=== PATIENT | female | born 1965 | race Caucasian/White ===

== ENCOUNTER 2017-03-06 11:38 | Emergency (ER) | payer OTHER, SELFPAY ==
[2017-03-06 11:39] VITALS: BMI 27.0
[2017-03-06 11:52] VITALS: BP 113/74; PULSE 90; RESP 16; TEMP 98.1; O2SAT 98
[2017-03-06 12:34] LABS: RBC URINE 1 /hpf (0-3); URINE BILIRUBIN NEGATIVE (NEGATIVE); URINE BLOOD NEGATIVE (NEGATIVE); URINE COLOR Yellow (YELLOW); URINE GLUCOSE (UA) NORMAL (Normal); URINE KETONE NEGATIVE (NEGATIVE); URINE LEUKOCYTE ESTERASE NEG Leu/uL (Negative); URINE PROTEIN NEGATIVE (NEGATIVE); URINE UROBILINOGEN NORMAL mg/dL (0.2-1.0); WBC URINE 1 /hpf (0-5)
--- NOTE | 2017-03-06 12:48 | C.PDOC ---
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 Pt sts, pain is constant, aching, non-radiating and relieved by Tylenol. Pt otherwise, denies fever, chills, denies known trauma or injury, headache, dizziness, CP, SOB, dyspnea, abd. pain , V/D, denies weakness, sensory or vascular deficits to B/L UEs and LEs. Pt is asking for back brace " to stabilize by back". Ambulate to Ed for evaluation, not in any apparent distress. Time Seen by Provider: 03/06/17 11:54 Chief Complaint (Nursing): Back Pain History Per: Patient History/Exam Limitations: no limitations Onset/Duration Of Symptoms: Days (3-4) Past Medical History Reviewed: Historical Data, Nursing Documentation, Vital Signs Vital Signs: Last Vital Signs Temp 98.1 F 03/06/17 11:49 Pulse 90 03/06/17 11:49 Resp 16 03/06/17 11:49 BP 113/74 03/06/17 11:49 Pulse Ox 98 03/06/17 13:33 - Medical History PMH: Malignancy (recent diagnosis of breast CA, treatment starting soon) Family History: States: No Known Family Hx - Social History Hx Alcohol Use: No Hx Substance Use: No Review Of Systems Except As Marked, All Systems Reviewed And Found Negative. Constitutional: Negative for: Fever, Chills Cardiovascular: Negative for: Chest Pain Respiratory: Negative for: Shortness of Breath Gastrointestinal: Negative for: Vomiting, Abdominal Pain, Diarrhea Musculoskeletal: Positive for: Back Pain (Diffuse upper and lower ) Neurological: Negative for: Headache, Dizziness Physical Exam - Physical Exam Appears: Well, Non-toxic, No Acute Distress Skin: Normal Color, Warm, Dry, No Rash, No Ecchymosis Eye(s): bilateral: PERRL Neck: No Midline Cervical Tenderness, No Step Off Deformity, Supple, Other ( mild diffuse cervical paraspinal tenderness. No midline tenderness, no palpable step-offs.) Chest: Symmetrical, No Deformity Respiratory: No Decreased Breath Sounds, No Accessory Muscle Use, No Stridor, No Wheezing Gastrointestinal/Abdominal: Soft, No Tenderness, No Distention, No Guarding Back: No CVA Tenderness, No Vertebral Tenderness, Paraspinal Tenderness ( diffuse lumbar paraspinal tenderness, no midline tenderness.) Extremity: No Tenderness, No Pedal Edema, No Deformity, No Swelling Neurological/Psych: Oriented x3, Normal Speech, Normal Motor, Normal Sensation, Normal Reflexes ED Course And Treatment O2 Sat by Pulse Oximetry: 98 (RA ) Pulse Ox Interpretation: Normal - Other Rad X-Ray - Lumbar Spine X-Ray: Viewed By Me, Read By Radiologist Interpretation: PROCEDURE: Radiographs of the Lumbar Spine. HISTORY: pain. COMPARISON: No prior. FINDINGS: BONES: No acute compression fractures nor retropulsed fragments. Vertebral bodies exhibit relatively normal stature. The appears to be very subtle levoscoliosis however vertebral bodies otherwise exhibit normal alignment. Facets normally aligned. DISC SPACES: Disc space heights maintained. Small marginal anterolateral osteophyte formation seen at several levels. OTHER FINDINGS: None. IMPRESSION: No acute fractures. Minimal multilevel degenerative spondylosis with very subtle levoscoliosis. X-Ray - Cervical Spine X-Ray: Viewed By Me, Read By Radiologist Interpretation: PROCEDURE: Cervical spine dated 03/06/2017. HISTORY: Pain. COMPARISON: None. FINDINGS: BONES: Note the examination is limited due to large screw aeration of the odontoid in the open mouth as well as extended fuller position. No definitive evidence of acute compression fractures nor retropulsed fragments. Vertebral bodies exhibit relatively normal stature. There is straightening of the normal cervical lordosis with minimal posterior subluxation of C6 over C7 vertebral bodies otherwise exhibit normal alignment. DISC SPACES: Disc space heights relatively maintained however tiny marginal anterior osteophyte formation seen at several levels. SOFT TISSUES: Normal. No prevertebral soft tissue swelling. OTHER FINDINGS: Note made of in situ right-sided adequate. IMPRESSION: No acute fractures so far as can be seen on this limited study as above. Straightening of the normal cervical lordosis ; rule out muscle spasm. There is also minimal posterior subluxation C6 over C7. Progress Note: On re-evaluation, pt is afebrile, hemodynamicaly stable. non- toxic. Ambulatory in ED with stable gait. Neck: (-) midline tenderness. Lungs : CTA B/L, BS equal B/L. Abd: benign. Back: (-) CVA tenderness. Neuorlogicaly intact. Imaging review and appears without acute abnoramlities. UA- normal study. Pt has clinical findings c/w diffuse back strain, hx of metastatic breast ca. Pt advised and ref. to f/[facility] in 2-3 days for re- evaluation. Return to ED if any worsening or new changes. Medical Decision Making Medical Decision Making: PLAN: * X-Ray - LS Spine, Cervical Spine * HCG * Urinalysis Disposition Counseled Patient/Family Regarding: Diagnosis, Need For Followup, Rx Given - Disposition Referrals: Ace Hendricks MD [Medical Doctor] - Disposition: HOME/ ROUTINE Disposition Time: 12:51 Condition: STABLE Additional Instructions: Take pain medication as need for pain Follow up with PMD in 2-3 days for re-evaluation. Return to ED if any worsening or new changes. Prescriptions: Methocarbamol [Robaxin] 500 mg PO TID #14 tab traMADol [Ultram] 50 mg PO TID #7 tab Instructions: Cervical Sprain (ED), Back Pain (ED) Forms: [employer] ([place]) - Clinical Impression Clinical Impression: Lumbar sprain, Cervical strain - PA / PLASTICS SEASONER OPERATOR / Resident Statement MD/DO has reviewed & agrees with the documentation as recorded. - Scribe Statement The provider has reviewed the documentation as recorded by the Scribe Mercedes Cabral All medical record entries made by the Scribe were at my direction and personally dictated by me. I have reviewed the chart and agree that the record accurately reflects my personal performance of the history, physical exam, medical decision making, and the department course for this patient. I have also personally directed, reviewed, and agree with the discharge instructions and disposition.
--- NOTE | 2017-03-06 13:19 | RAD ---
PROCEDURE: Radiographs of the Lumbar Spine. HISTORY: pain COMPARISON: No prior. FINDINGS: BONES: No acute compression fractures nor retropulsed fragments. Vertebral bodies exhibit relatively normal stature. The appears to be very subtle levoscoliosis however vertebral bodies otherwise exhibit normal alignment. Facets normally aligned. DISC SPACES: Disc space heights maintained. Small marginal anterolateral osteophyte formation seen at several levels. OTHER FINDINGS: None. IMPRESSION: No acute fractures. Minimal multilevel degenerative spondylosis with very subtle levoscoliosis
--- NOTE | 2017-03-06 13:22 | RAD ---
PROCEDURE: Cervical spine dated 03/06/2017 HISTORY: Pain. COMPARISON: None. FINDINGS: BONES: Note the examination is limited due to large screw aeration of the odontoid in the open mouth as well as extended fuller position. No definitive evidence of acute compression fractures nor retropulsed fragments. Vertebral bodies exhibit relatively normal stature. There is straightening of the normal cervical lordosis with minimal posterior subluxation of C6 over C7 vertebral bodies otherwise exhibit normal alignment DISC SPACES: Disc space heights relatively maintained however tiny marginal anterior osteophyte formation seen at several levels. SOFT TISSUES: Normal. No prevertebral soft tissue swelling. OTHER FINDINGS: Note made of in situ right-sided adequate IMPRESSION: No acute fractures so far as can be seen on this limited study as above. Straightening of the normal cervical lordosis ; rule out muscle spasm. There is also minimal posterior subluxation C6 over C7.
== END 2017-03-06 13:54 | disposition home or self-care (01) ==
LOC: C.ER 11:38
DX: S33.5XXA Sprain of ligaments of lumbar spine, initial encounter (principal); S16.1XXA Strain of muscle, fascia and tendon at neck level, initial encounter; X50.9XXA Other and unspecified overexertion or strenuous movements or postures, initial encounter

== ENCOUNTER 2017-03-26 15:50 | Emergency (ER) | payer OTHER, SELFPAY ==
[2017-03-26 15:50] VITALS: BMI 38.1
[2017-03-26 16:03] VITALS: TEMP 98.2
[2017-03-26 16:40] LABS: URINE BILIRUBIN NEGATIVE (NEGATIVE); URINE BLOOD 2+ (NEGATIVE); URINE COLOR Yellow (YELLOW); URINE GLUCOSE (UA) NORMAL (Normal); URINE KETONE NEGATIVE (NEGATIVE); URINE LEUKOCYTE ESTERASE NEG Leu/uL (Negative); URINE PROTEIN NEGATIVE (NEGATIVE); URINE UROBILINOGEN NORMAL mg/dL (0.2-1.0); WBC URINE < 1 /hpf (0-5)
[2017-03-26 16:46] LABS: RBC URINE 4 /hpf (0-3); URINE BACTERIA RARE (<OCC)
[2017-03-26 17:18] LABS: BASO % 0.5 % (0.0-2.0); EOS # 0.3 K/uL (0.0-0.7); EOS % 4.1 % (0.0-4.0); HEMATOCRIT 30.1 % (34.0-47.0); LYMPH # 2.4 K/uL (1.0-4.3); LYMPH % 29.7 % (20.0-40.0); MEAN CELL VOLUME 84.5 fL (81.0-99.0); MEAN CORPUSCULAR HEMOGLOBIN 27.5 pg (27.0-31.0); MEAN CORPUSCULAR HGB CONC 32.6 g/dL (33.0-37.0); MEAN PLATELET VOLUME 7.3 fL (7.2-11.7); MONO # 0.4 K/uL (0.0-0.8); MONO % 5.4 % (0.0-10.0); RED CELL DISTRIBUTION WIDTH 13.6 % (11.5-14.5); WHITE BLOOD COUNT 8.2 K/uL (4.8-10.8)
[2017-03-26 17:25] LABS: INR 1.1
[2017-03-26 17:29] LABS: ALKALINE PHOSPHATASE 77 U/L (38-126); ALT/SGPT 34 U/L (9-52); AST/SGOT 26 U/L (14-36); BILIRUBIN,TOTAL 0.5 mg/dL (0.2-1.3); BLOOD UREA NITROGEN 13 mg/dL (7-17); CALCIUM 9.2 mg/dl (8.6-10.4); CARBON DIOXIDE 26 mmol/L (22-30); CHLORIDE 102 mmol/L (98-107); GFR AFRICAN-AMERICAN > 60; GLUCOSE,RANDOM 88 mg/dL (65-105); POTASSIUM 3.9 mmol/L (3.6-5.2); SODIUM 139 mmol/L (132-148); TOTAL PROTEIN 6.8 g/dL (6.3-8.3)
[2017-03-26] MEDS ORDERED: Sodium Chloride 0.9% 1,000 ML IV ONE (18:36)
--- NOTE | 2017-03-26 20:20 | US ---
EXAM: US Pelvis Complete, Transabdominal US Pelvis, Transvaginal CLINICAL HISTORY: 51 years old, female; Signs and symptoms; Menstruation abnormalities; Postmenopausal bleeding; Additional info: Vaginal bleeding. H/o metastatic breast ca. TECHNIQUE: Real-time transabdominal and transvaginal pelvic ultrasound (complete) with image documentation. Transvaginal imaging was used for better evaluation of the endometrium and adnexa. COMPARISON: No relevant prior studies available. FINDINGS: Uterus/cervix: The uterus measures 10.2 x 4.8 x 7.1 cm. Endometrial stripe measures 1.4 cm. Right ovary: The right ovary measures 3.5 x 3.4 x 3.6 cm and contains a complex cyst measuring 3.6 cm in greatest diameter. Blood flow is demonstrated in the left ovary on pulsed Doppler examination. Left ovary: The left ovary measures 4.7 x 2.2 x 4 cm. Subcentimeter follicles are present. Blood flow is demonstrated within the left ovary on color Doppler examination. Free fluid: No free fluid. Bladder: Unremarkable as visualized. Wall is normal thickness for degree of distention. IMPRESSION: Endometrial stripe is thickened for postmenopausal female. An endovaginal examination performed immediately after the transabdominal study demonstrated a endometrial thickness of 7 mm. Please see report from the transvaginal study. 2. Hemorrhagic cyst in the right ovary EXAM: US Pelvis, Transvaginal EXAM DATE/TIME: Exam ordered 03/26/2017 4:44 PM CLINICAL HISTORY: 51 years old, female; Signs and symptoms; Menstruation abnormalities; Postmenopausal bleeding; Additional info: Vaginal bleeding. H/o metastatic breast ca. TECHNIQUE: Real-time transvaginal pelvic ultrasound (complete) with image documentation. Transvaginal imaging was used for better evaluation of the endometrium and adnexa. COMPARISON: No relevant prior studies available. FINDINGS: Uterus/cervix: The uterus measures 9.8 x 6.7 x 5 cm. A subendometrial cyst is noted in the fundus measuring 2 mm. There is an intramural fibroid noted on superiorly in the right uterine corpus and measures 2.7 x 2.3 x 2.5 cm. The endometrial stripe measures 7 mm. Right ovary: The right ovary measures 3.7 x 3.3 x 3.3 cm. A 2.6 cm hemorrhagic cyst is noted in the right ovary. Blood flow is demonstrated within the right ovary. . Left ovary: The left ovary measures 3.6 x 2.3 x 3.2 cm. Subcentimeter follicles are present. Blood flow is demonstrated on color Doppler examination. Free fluid: No free fluid. Bladder: Empty bladder which cannot be evaluated with this probe. Other findings: IMPRESSION: 1. Uterine fibroid. 2. Endometrial stripe measures 7 mm which is abnormal for postmenopausal female unless the patient is receiving hormonal therapy or tamoxifen. Clinical correlation suggested. 3. Subendometrial cyst suggests adenomyosis 4. Hemorrhagic cyst noted within the right ovary. This would be an abnormal finding in a postmenopausal female and suggests an ovarian neoplasm. Please correlate with patient's menstrual status. If the patient is perimenopausal, short-term followup suggested to document resolution.
--- NOTE | 2017-03-26 21:04 | C.PDOC ---
History Of Present Illness Pt c/o vaginal bleeding. She states that the severity of the bleeding is similar to a menstrual period. Time Seen by Provider: 03/26/17 16:11 Chief Complaint (Nursing): Female Genitourinary History Per: Patient Onset/Duration Of Symptoms: Days (1) Current Symptoms Are (Timing): Still Present Severity: Moderate Quality Of Discomfort: Cramping Alleviating Factors: None Additional History Per: Prior Records Abnormal Vaginal Bleeding: Yes Past Medical History Reviewed: Historical Data, Nursing Documentation, Vital Signs Vital Signs: Last Vital Signs Temp 98.2 F 03/26/17 16:01 Pulse 75 03/26/17 19:51 Resp 16 03/26/17 19:51 BP 103/58 L 03/26/17 19:51 Pulse Ox 100 03/26/17 19:51 - Medical History PMH: Malignancy (Breast, metastatic.) Surgical History: No Surg Hx Family History: States: Unknown Family Hx - Social History Hx Alcohol Use: No Hx Substance Use: No Review Of Systems Except As Marked, All Systems Reviewed And Found Negative. Constitutional: Negative for: Fever Cardiovascular: Negative for: Chest Pain, Light Headedness Respiratory: Negative for: Shortness of Breath Gastrointestinal: Negative for: Vomiting Genitourinary: Positive for: Vaginal Bleeding. Negative for: Dysuria Musculoskeletal: Negative for: Neck Pain Skin: Negative for: Rash Neurological: Negative for: Weakness, Numbness, Seizures Physical Exam - Physical Exam Appears: No Acute Distress, Chronically Ill Skin: Warm, Dry Head: Atraumatic, Normacephalic Eye(s): bilateral: PERRL, EOMI Neck: Normal ROM, Supple Cardiovascular: Rhythm Regular Respiratory: Normal Breath Sounds, No Accessory Muscle Use Gastrointestinal/Abdominal: Soft, Tenderness (mild suprapubic), No Guarding, No Rebound Back: No CVA Tenderness Extremity: Normal ROM Neurological/Psych: Oriented x3, Normal Motor, Normal Sensation ED Course And Treatment - Laboratory Results Result Diagrams: 03/26/17 17:12 03/26/17 17:12 Interpretation Of Abnormal: Mild anemia. Urine POC: Negative O2 Sat by Pulse Oximetry: 100 Pulse Ox Interpretation: Normal - CT Scan/US Pelvic US Other Rad Studies (CT/US): Read By Radiologist, Radiology Report Reviewed CT/US Interpretation: IMPRESSION: 1. Uterine fibroid. . 2. Endometrial stripe measures 7 mm which is abnormal for postmenopausal female. unless the patient is receiving hormonal therapy or tamoxifen. Clinical. correlation suggested. . 3. Subendometrial cyst suggests adenomyosis. . 4. Hemorrhagic cyst noted within the right ovary. This would be an abnormal. finding in a postmenopausal female and suggests an ovarian neoplasm. Please. correlate with patient's menstrual status. If the patient is perimenopausal,. short-term followup suggested to document resolution. - Physician Consult Information Physician Contacted: Malu Bledsoe ([employer]) Outcome Of Conversation: I discussed with her the pt's history, presentation, lab and US findings. She states that pt should continue all her medications, including the aromatase inhibitor and f/up with outpt Gas[employer]isher for further evaluation and treatment. Disposition Counseled Patient/Family Regarding: Studies Performed, Diagnosis, Need For Followup, Rx Given - Disposition Referrals: Alexander Leo MD [Staff Provider] - Bj Flores [Staff Provider] - [facility] [Outside] Disposition: HOME/ ROUTINE Disposition Time: 21:07 Condition: FAIR Additional Instructions: Follow up with your doctor and with a [employer] Instructor this week for further evaluation and treatment. Return to the ER if you develop dizziness, fever, worsening of symptoms or if you have any other concerns. Prescriptions: Ferrous Sulfate [Feosol] 325 mg PO TID #30 tab Instructions: Ovarian Cyst (ED), Uterine Fibroids (ED) Forms: [employer] (Dominican) - Clinical Impression Clinical Impression: Abnormal vaginal bleeding, Uterus, adenomyosis, Fibroid, uterine, Hemorrhagic cyst of right ovary
[2017-03-26 21:23] VITALS: BP 98/59; PULSE 83; RESP 18; O2SAT 99
== END 2017-03-26 21:36 | disposition home or self-care (01) ==
LOC: C.ER 15:50
DX: N93.9 Abnormal uterine and vaginal bleeding, unspecified (principal); N80.0 Endometriosis of uterus; D25.9 Leiomyoma of uterus, unspecified; N83.201 Unspecified ovarian cyst, right side
CPT/HCPCS: 76830; 76856; 80053; 81001; 84703; 85025; 85610; 85730; 96360; 99285; J7040

== ENCOUNTER 2017-05-15 17:22 | Emergency (ER) | payer SELFPAY ==
[2017-05-15 17:22] VITALS: BMI 27.6
--- NOTE | 2017-05-15 18:31 | C.PDOC ---
History Of Present Illness 51 y/o9 female with PMHX of breast cancer presents to ED with complaints of 101.0 fever, aching joints, shaking hands and headache for 3 days. At ED patient reports chest "pressure" making it hard to breathe and takes Tylenol with mild relief but still feels uncomfortable which prompted visit to ED. Patient states she had the flu last year and these symptoms feel similar. Patient denies recent travel, sick contacts, dizziness, abdominal pain, symptoms or any other complaints at this time. Flu vaccine x1 month ago Time Seen by Provider: 05/15/17 18:13 Chief Complaint (Nursing): Flu-like Symptoms History Per: Patient History/Exam Limitations: no limitations Onset/Duration Of Symptoms: Days Current Symptoms Are (Timing): Still Present Location Of Pain: Diffuse Myalgias, Headache Past Medical History Reviewed: Historical Data, Nursing Documentation, Vital Signs Vital Signs: Last Vital Signs Temp 99 F 05/15/17 20:37 Pulse 78 05/15/17 20:37 Resp 20 05/15/17 20:37 BP 110/66 05/15/17 20:37 Pulse Ox 100 05/15/17 20:37 - Medical History PMH: Malignancy (Breast, metastatic.) Surgical History: No Surg Hx Family History: States: No Known Family Hx - Social History Hx Alcohol Use: No Hx Substance Use: No Review Of Systems Except As Marked, All Systems Reviewed And Found Negative. Constitutional: Positive for: Fever. Negative for: Chills ENT: Negative for: Throat Pain, Throat Swelling Cardiovascular: Positive for: Chest Pain Respiratory: Negative for: Cough, Shortness of Breath Gastrointestinal: Negative for: Nausea, Vomiting Skin: Negative for: Rash Neurological: Negative for: Dizziness Physical Exam - Physical Exam Appears: Non-toxic, No Acute Distress Skin: Warm, No Rash, Other (Clammy skin) Head: Atraumatic, Normacephalic Eye(s): bilateral: Normal Inspection, EOMI Nose: Normal Oral Mucosa: Moist Chest: Symmetrical Cardiovascular: Rhythm Regular, Other (Tachycardic) Respiratory: No Rales, Rhonchi (right inferior lobe), No Wheezing Gastrointestinal/Abdominal: Soft, No Tenderness, No Guarding, No Rebound Extremity: Normal ROM, No Pedal Edema Neurological/Psych: Oriented x3, Normal Motor, Normal Sensation ED Course And Treatment - Laboratory Results Result Diagrams: 05/15/17 18:58 05/15/17 18:58 O2 Sat by Pulse Oximetry: 100 (RA) Pulse Ox Interpretation: Normal Disposition - Disposition Referrals: [facility] [Outside] Disposition: HOME/ ROUTINE Disposition Time: 20:18 Condition: GOOD Instructions: Viral Syndrome (ED) Forms: [facility] [employer] (Surinamese), General Discharge Instructions - Clinical Impression Clinical Impression: Viral syndrome - Scribe Statement The provider has reviewed the documentation as recorded by the Scribvalerio Palomino All medical record entries made by the Margyibvalerio were at my direction and personally dictated by me. I have reviewed the chart and agree that the record accurately reflects my personal performance of the history, physical exam, medical decision making, and the department course for this patient. I have also personally directed, reviewed, and agree with the discharge instructions and disposition.
[2017-05-15] MEDS ORDERED: Sodium Chloride 0.9% 1,000 ML IV ONE (18:41)
[2017-05-15 19:04] LABS: BASO % 0.5 % (0.0-2.0); EOS # 0.3 K/uL (0.0-0.7); EOS % 4.8 % (0.0-4.0); HEMATOCRIT 31.6 % (34.0-47.0); LYMPH % 28.5 % (20.0-40.0); MEAN CELL VOLUME 84.9 fL (81.0-99.0); MEAN CORPUSCULAR HEMOGLOBIN 28.5 pg (27.0-31.0); MEAN CORPUSCULAR HGB CONC 33.6 g/dL (33.0-37.0); MEAN PLATELET VOLUME 7.5 fL (7.2-11.7); MONO # 0.5 K/uL (0.0-0.8); MONO % 7.4 % (0.0-10.0); RED CELL DISTRIBUTION WIDTH 14.1 % (11.5-14.5); WHITE BLOOD COUNT 7.2 K/uL (4.8-10.8)
[2017-05-15 19:12] LABS: CHLORIDE 97 mmol/L (98-107)
[2017-05-15 19:13] LABS: POTASSIUM 3.8 mmol/L (3.6-5.2); SODIUM 134 mmol/L (132-148)
[2017-05-15 19:16] LABS: ALB/GLOB RATIO 1.1 (1.0-2.1); ALKALINE PHOSPHATASE 79 U/L (38-126); ALT/SGPT 49 U/L (9-52); AST/SGOT 44 U/L (14-36); BILIRUBIN,TOTAL 0.5 mg/dL (0.2-1.3); BLOOD UREA NITROGEN 18 mg/dL (7-17); CALCIUM 9.5 mg/dl (8.6-10.4); CARBON DIOXIDE 29 mmol/L (22-30); GFR AFRICAN-AMERICAN > 60; GLUCOSE,RANDOM 114 mg/dL (65-105); TOTAL PROTEIN 7.9 g/dL (6.3-8.3)
[2017-05-15 19:22] LABS: RBC URINE < 1 /hpf (0-3); URINE BILIRUBIN NEGATIVE (NEGATIVE); URINE BLOOD NEGATIVE (NEGATIVE); URINE COLOR Straw (YELLOW); URINE GLUCOSE (UA) NORMAL (Normal); URINE KETONE NEGATIVE (NEGATIVE); URINE LEUKOCYTE ESTERASE NEG Leu/uL (Negative); URINE PROTEIN NEGATIVE (NEGATIVE); URINE UROBILINOGEN NORMAL mg/dL (0.2-1.0); WBC URINE 1 /hpf (0-5)
[2017-05-15 20:19] VITALS: O2SAT 100
[2017-05-15 20:37] VITALS: BP 110/66; PULSE 78; RESP 20; TEMP 99
--- NOTE | 2017-05-16 09:25 | RAD ---
HISTORY: SOB COMPARISON: 07/26/2016 TECHNIQUE: Chest PA and lateral FINDINGS: LUNGS: No active pulmonary disease. A triangular 6.2 by 0.5 cm opacity projects over the right upper lung zone this is probably artifactual extrinsic to the patient Tiny metallic opacities attributed to prior breast intervention project over the left inferior breast/ left lung base as before PLEURA: No significant pleural effusion identified. No pneumothorax apparent. CARDIOVASCULAR: Normal heart size.Right-sided medication port with the distal tip of the catheter overlying the projection of the SVC/right atrial junction. No significant pulmonary venous congestion suggested OSSEOUS STRUCTURES: No significant abnormalities. VISUALIZED UPPER ABDOMEN: Normal. OTHER FINDINGS: None. IMPRESSION: No active disease. Right-sided medication port with the distal tip of the catheter overlying the projection of the SVC/right atrial junction.
== END 2017-05-15 20:57 | disposition home or self-care (01) ==
LOC: C.ER 17:22
DX: B34.9 Viral infection, unspecified (principal)
CPT/HCPCS: 71020; 80053; 81001; 85025; 87040; 87804; 96374; 99285; J1885; J7040

== ENCOUNTER 2017-06-09 15:39 | Emergency (ER) | payer SELFPAY ==
[2017-06-09 15:39] VITALS: BMI 27.3
[2017-06-09 17:38] LABS: RBC URINE < 1 /hpf (0-3); URINE BILIRUBIN NEGATIVE (NEGATIVE); URINE BLOOD NEGATIVE (NEGATIVE); URINE COLOR Yellow (YELLOW); URINE GLUCOSE (UA) NORMAL (Normal); URINE KETONE NEGATIVE (NEGATIVE); URINE LEUKOCYTE ESTERASE NEG Leu/uL (Negative); URINE PROTEIN NEGATIVE (NEGATIVE); URINE UROBILINOGEN NORMAL mg/dL (0.2-1.0)
--- NOTE | 2017-06-09 17:44 | C.PDOC ---
History Of Present Illness <Licha Tobias - Last Filed: 06/09/17 18:57> <Gordon Valle - Last Filed: 06/09/17 21:12> 51 y/o female, with past medical history of metastatic breast cancer, reports generalized body aches associated with subjective fevers and chills for 3 days. Patient reports she has been feeling pleuritic chest pain for the past 2 days, with pain to the bilateral lower ribs with deep breathing. Denies trauma, cough , runny nose, nasal congestion, nausea, vomiting. (Licha Tobias) History Per: Patient History/Exam Limitations: no limitations Onset/Duration Of Symptoms: Days Current Symptoms Are (Timing): Still Present Location Of Pain: Diffuse Myalgias Sick Contacts (Context): None Associated Symptoms: Fever (subjective). denies: Cough, Vomiting, Diarrhea Ear Symptoms: Bilateral: None Recent travel outside of the [place]: No <Licha Tobias - Last Filed: 06/09/17 18:57> <Gordon Valle - Last Filed: 06/09/17 21:12> Time Seen by Provider: 06/09/17 17:05 Chief Complaint (Nursing): Flu-like Symptoms Past Medical History Reviewed: Historical Data, Nursing Documentation, Vital Signs - Medical History PMH: Malignancy (Breast, metastatic.) Family History: States: Unknown Family Hx - Social History Hx Alcohol Use: No Hx Substance Use: No - Immunization History Hx Tetanus Toxoid Vaccination: No Hx Influenza Vaccination: Yes Hx Pneumococcal Vaccination: No <Licha Tobias - Last Filed: 06/09/17 18:57> Vital Signs: Last Vital Signs Temp 97.7 F 06/09/17 15:43 Pulse 89 06/09/17 15:43 Resp 18 06/09/17 15:43 BP 112/74 06/09/17 15:43 Pulse Ox 100 06/09/17 19:00 Review Of Systems Except As Marked, All Systems Reviewed And Found Negative. Constitutional: Positive for: Fever (subjective), Malaise. Negative for: Chills Cardiovascular: Negative for: Chest Pain Respiratory: Positive for: Pleuritic Pain. Negative for: Cough, Wheezing Gastrointestinal: Negative for: Vomiting, Abdominal Pain, Diarrhea Skin: Negative for: Rash Neurological: Negative for: Dizziness <Licha Tobias - Last Filed: 06/09/17 18:57> Physical Exam - Physical Exam Appears: Non-toxic, No Acute Distress Skin: Warm, Dry, Pale Head: Atraumatic, Normacephalic Eye(s): bilateral: Normal Inspection, PERRL, EOMI Ear(s): Bilateral: Normal Nose: Normal Oral Mucosa: Moist Throat: Normal, No Erythema, No Exudate Neck: Normal ROM, Supple Chest: Symmetrical Cardiovascular: Rhythm Regular Respiratory: Decreased Breath Sounds (Clear to auscultation), No Rales, No Rhonchi, No Wheezing Gastrointestinal/Abdominal: Soft, No Tenderness, No Guarding Back: Normal Inspection Extremity: Normal ROM, Capillary Refill (< 2 sec.) Neurological/Psych: Oriented x3, Normal Speech, Normal Cognition <Licha Tobias - Last Filed: 06/09/17 18:57> ED Course And Treatment - Laboratory Results Result Diagrams: 06/09/17 17:58 06/09/17 17:58 O2 Sat by Pulse Oximetry: 100 (RA) Pulse Ox Interpretation: Normal - Radiology CXR: Interpreted by Ks CXR Interpretation: Yes: No Acute Disease. No: Infiltrates Progress Note: CT Angio chest, EKG, chest xray, bloodwork ordered. Treated with Tylenol. Old records reviewed, the patient was last seen in the ED on 05/15/17 for fever and chills, diagnosed with viral syndrome, and was discharged home. <Licha Tobias - Last Filed: 06/09/17 18:57> - Laboratory Results Result Diagrams: 06/09/17 17:58 06/09/17 17:58 <Gordon Valle - Last Filed: 06/09/17 21:12> Medical Decision Making <Licha Tobias - Last Filed: 06/09/17 18:57> <Gordon Valle - Last Filed: 06/09/17 21:12> Medical Decision Making: Upon provider reevaluation patient is feeling better, is medically stable, and requires no further treatment in the ED at this time. Patient will be discharged home with Rx for percocet and zofran . Counseling was provided and all questions were answered regarding diagnosis and need for follow up with dr leo. There is agreement to discharge plan. Return if symptoms persist or worsen. (Gordon Valle) Disposition - Disposition Disposition Time: 18:59 <Licha Tobias - Last Filed: 06/09/17 18:57> Counseled Patient/Family Regarding: Studies Performed, Diagnosis, Need For Followup, Rx Given <Gordon Valle - Last Filed: 06/09/17 21:12> - Disposition Referrals: Alexander Leo MD [Staff Provider] - Disposition: HOME/ ROUTINE Condition: FAIR Prescriptions: Ondansetron ODT [Zofran ODT] 1 odt PO BID PRN #20 odt PRN Reason: Nausea/Vomiting oxyCODONE/Acetaminophen [Percocet 5/325 mg Tab] 1 tab PO QID PRN #20 tab PRN Reason: Pain Instructions: Fatigue (DC), Breast Cancer in Women (DC) Forms: [employer] (Estonian) - Clinical Impression Clinical Impression: Breast cancer, Malaise and fatigue - PA / PR[facility] / Resident Statement MD/DO has reviewed & agrees with the documentation as recorded. - Scribe Statement The provider has reviewed the documentation as recorded by the Scribe <Licha Tobias - Last Filed: 06/09/17 18:57> <Gordon Valle - Last Filed: 06/09/17 21:12> - Scribe Statement SM All medical record entries made by the Scribe were at my direction and personally dictated by me. I have reviewed the chart and agree that the record accurately reflects my personal performance of the history, physical exam, medical decision making, and the department course for this patient. I have also personally directed, reviewed, and agree with the discharge instructions and disposition. (Licha Tobias) Physician Patient Turnover Patient Signed Over To: Gordon Valle Handoff Comments: Pending CT scan of the chest and disposition. <Licha Tobias - Last Filed: 06/09/17 18:57>
[2017-06-09 18:02] LABS: BASO # 0.1 K/uL (0.0-0.2); BASO % 0.7 % (0.0-2.0); EOS # 0.2 K/uL (0.0-0.7); EOS % 2.8 % (0.0-4.0); HEMATOCRIT 30.4 % (34.0-47.0); LYMPH # 2.3 K/uL (1.0-4.3); LYMPH % 27.6 % (20.0-40.0); MEAN CELL VOLUME 83.1 fL (81.0-99.0); MEAN CORPUSCULAR HEMOGLOBIN 27.8 pg (27.0-31.0); MEAN CORPUSCULAR HGB CONC 33.5 g/dL (33.0-37.0); MEAN PLATELET VOLUME 7.1 fL (7.2-11.7); MONO # 0.7 K/uL (0.0-0.8); RED CELL DISTRIBUTION WIDTH 13.4 % (11.5-14.5); WHITE BLOOD COUNT 8.2 K/uL (4.8-10.8)
[2017-06-09 18:13] LABS: ALB/GLOB RATIO 1.3 (1.0-2.1); ALKALINE PHOSPHATASE 79 U/L (38-126); ALT/SGPT 39 U/L (9-52); AST/SGOT 33 U/L (14-36); BILIRUBIN,TOTAL 0.8 mg/dL (0.2-1.3); BLOOD UREA NITROGEN 16 mg/dL (7-17); CALCIUM 8.9 mg/dl (8.6-10.4); CARBON DIOXIDE 28 mmol/L (22-30); CHLORIDE 97 mmol/L (98-107); GFR AFRICAN-AMERICAN > 60; GLUCOSE,RANDOM 90 mg/dL (65-105); INR 1.2; POTASSIUM 3.7 mmol/L (3.6-5.2); SODIUM 134 mmol/L (132-148); TOTAL PROTEIN 7.2 g/dL (6.3-8.3)
--- NOTE | 2017-06-09 18:19 | RAD ---
HISTORY: chest pain, pleuritic pain COMPARISON: Comparison is made to 05/15/2017 TECHNIQUE: Chest PA and lateral FINDINGS: LUNGS: No active pulmonary disease. PLEURA: No significant pleural effusion identified. No pneumothorax apparent. CARDIOVASCULAR: Normal. OSSEOUS STRUCTURES: No significant abnormalities. VISUALIZED UPPER ABDOMEN: Normal. OTHER FINDINGS: Right-sided Infusaport is again seen in place. IMPRESSION: No active disease.
--- NOTE | 2017-06-09 21:00 | CT ---
EXAM: CT Angiography Chest With Intravenous Contrast EXAM DATE/TIME: 06/09/2017 5:40 PM CLINICAL HISTORY: 51 years old, female; Pain; Chest pain; Type not specified; Additional info: Pleuritic pain, SOB metastatic breast cancer TECHNIQUE: Axial computed tomographic angiography images of the chest with intravenous contrast using pulmonary embolism protocol. All CT scans at this facility use one or more dose reduction techniques, viz.: automated exposure control; ma/kV adjustment per patient size (including targeted exams where dose is matched to indication; i.e. head); or iterative reconstruction technique. MIP reconstructed images were created and reviewed. Coronal and sagittal reformatted images were created and reviewed. CONTRAST: 100 mL of visipaque 320 administered intravenously. COMPARISON: There are no prior studies for comparison. FINDINGS: Heart, aorta and Pulmonary arteries: Heart size is normal.There is fluid in pericardial recesses. There is no aneurysm or dissection. There are no central pulmonary emboli. Bolus timing limits evaluation of peripheral vessels. There are no large peripheral pulmonary emboli. Lungs and pleural spaces: Trachea and main bronchi are patent.There is no pneumothorax. There is minimal dependent atelectasis. There is no lobar or segmental consolidation. There is minimal pleural thickening. There is a tiny pleural-based lingular nodule along the inferior aspect of the left major fissure, image 23 series 603, image 76 series 604, 2.7 mm. There is a 2.7 mm pleural-based left lower lobe nodule, image 199 series 2. There are no effusions. Mediastinum: There are enlarged mediastinal nodes. There is an enlarged right hilar node, 1.6 x 1.7 cm. In length will go. There is subcarinal adenopathy. Esophagus is unremarkable. There is a small hiatal hernia. Thyroid: Thyroid is unremarkable Bones/joints: Vertebral body architecture is heterogeneous. There are no acute fractures. There is a sclerotic lesion in the manubrium. Soft tissues : There are postsurgical changes in the left breast. There is surgical clips. There is nodularity to left breast parenchyma. There are enlarged left axillary nodes. Upper abdomen: Bolus timing limits evaluation of the liver. There are multiple low attenuation hepatic lesions. A Tubes, lines and devices: There is a Port-A-Cath in the right chest wall. Catheter tip is in the right atrium. IMPRESSION: No aneurysm, dissection or pulmonary embolus; mediastinal and hilar adenopathy suspicious for metastatic disease; indeterminate pleural-based lingular and left lower lobe nodules, comparison with prior studies advised; multiple hepatic lesions suspicious for metastases; probable bony metastatic disease Additional findings as described above.
[2017-06-09 21:27] VITALS: BP 110/70; PULSE 80; RESP 14; TEMP 97.5; O2SAT 99
== END 2017-06-09 21:27 | disposition home or self-care (01) ==
LOC: C.ER 15:39
DX: C50.919 Malignant neoplasm of unspecified site of unspecified female breast (principal); R53.83 Other fatigue; R53.81 Other malaise
CPT/HCPCS: 71020; 71275; 80053; 81001; 83880; 84484; 84703; 85025; 85378; 85610; 85730; 96374; 99283; J1885

== ENCOUNTER 2017-08-17 17:01 | Emergency (ER) | payer SELFPAY ==
[2017-08-17 17:37] VITALS: BMI 26.5
[2017-08-17] MEDS ORDERED: Sodium Chloride 0.9% 500 ML IV ONE ×2 (17:57→18:19)
--- NOTE | 2017-08-17 17:57 | C.PDOC ---
History Of Present Illness Patient is a 51 y/o F with breast cancer with metastasis to the bone, presenting with 9 day history of generalized myalgia and temperature to 100. Patient reports that symptoms resolve with Motrin. Denies cough or uri complaints. Denies chest pain or shortness of breath. Denies dysuria. Time Seen by Provider: 08/17/17 17:45 Chief Complaint (Nursing): Flu-like Symptoms History Per: Patient History/Exam Limitations: no limitations Onset/Duration Of Symptoms: Days (9) Current Symptoms Are (Timing): Still Present Past Medical History Reviewed: Historical Data, Nursing Documentation, Vital Signs Vital Signs: Last Vital Signs Temp 98.6 F 08/17/17 21:21 Pulse 63 08/17/17 21:21 Resp 16 08/17/17 21:21 BP 123/80 08/17/17 21:21 Pulse Ox 99 08/17/17 22:52 - Medical History PMH: Malignancy (Breast, metastatic.) Family History: States: No Known Family Hx - Social History Hx Alcohol Use: No Hx Substance Use: No - Immunization History Hx Tetanus Toxoid Vaccination: No Hx Influenza Vaccination: Yes Hx Pneumococcal Vaccination: No Review Of Systems Except As Marked, All Systems Reviewed And Found Negative. Constitutional: Positive for: Fever (100), Other ((+) generalized myalgia) ENT: Negative for: Throat Pain Cardiovascular: Negative for: Chest Pain Respiratory: Negative for: Cough, Shortness of Breath Genitourinary: Negative for: Dysuria Physical Exam - Physical Exam Appears: Non-toxic, No Acute Distress Skin: Warm, Dry, No Rash Oral Mucosa: Moist Lips: Normal Appearing Chest: Symmetrical, No Tenderness Cardiovascular: Rhythm Regular, No Murmur Respiratory: No Rales, Wheezing (bilateral) Gastrointestinal/Abdominal: Normal Exam, Soft, No Tenderness, No Guarding, No Rebound Extremity: Normal ROM, No Swelling Neurological/Psych: Oriented x3, Normal Speech, Normal Motor ED Course And Treatment - Laboratory Results Result Diagrams: 08/17/17 18:55 08/17/17 18:55 O2 Sat by Pulse Oximetry: 99 (RA) Pulse Ox Interpretation: Normal Medical Decision Making Medical Decision Making: PLAN: * CXR * VBG * CBC * CMP * Influenza * Urinalysis * Albuterol INH * Sodium Chloride IV Patient has had extensive negative workup. EKG shows NSR at 96bpm with non- specific ST changes. Cxray negative. Labs grossly normal. She has had 2 prior ED evaluations for viral syndrome. Spoke to patient about viral syndome vs [place], Will follow-up [facility] PMD and oncology Disposition - Disposition Disposition: HOME/ ROUTINE Disposition Time: 21:08 Condition: GOOD Prescriptions: oxyCODONE/Acetaminophen [Percocet 5/325 mg Tab] 1 ea PO Q6 PRN #10 tab PRN Reason: Pain, Moderate (4-7) Instructions: Viral Syndrome (ED) Forms: [employer] (Azeri) - Clinical Impression Clinical Impression: Influenza-like illness - Scribe Statement The provider has reviewed the documentation as recorded by the Margyibe Mercedes Cabral Provider Attestation: All medical record entries made by the Margyibe were at my direction and personally dictated by me. I have reviewed the chart and agree that the record accurately reflects my personal performance of the history, physical exam, medical decision making, and the department course for this patient. I have also personally directed, reviewed, and agree with the discharge instructions and disposition.
[2017-08-17] MEDS ORDERED: Albuterol-Ipratrop 3 mg / 0.5 (3 ml) UD INH STA (18:18)
[2017-08-17 18:58] LABS: BASO # 0.1 K/uL (0.0-0.2); BASO % 0.7 % (0.0-2.0); EOS # 0.4 K/uL (0.0-0.7); EOS % 4.9 % (0.0-4.0); HEMOGLOBIN 9.7 g/dL (11.0-16.0); LYMPH # 1.8 K/uL (1.0-4.3); MEAN CORPUSCULAR HEMOGLOBIN 28.8 pg (27.0-31.0); MEAN CORPUSCULAR HGB CONC 34.6 g/dL (33.0-37.0); MEAN PLATELET VOLUME 6.7 fL (7.2-11.7); MONO # 0.7 K/uL (0.0-0.8); MONO % 7.4 % (0.0-10.0); RBC 3.38 Mil/uL (3.80-5.20); RED CELL DISTRIBUTION WIDTH 14.8 % (11.5-14.5); WHITE BLOOD COUNT 8.9 K/uL (4.8-10.8)
[2017-08-17 19:01] LABS: SQUAMOUS EPITHIAL 1 /hpf (0-5); URINE BACTERIA RARE (<OCC); URINE BILIRUBIN NEGATIVE (NEGATIVE); URINE BLOOD NEGATIVE (NEGATIVE); URINE CLARITY Clear (Clear); URINE COLOR Yellow (YELLOW); URINE GLUCOSE (UA) NORMAL (Normal); URINE LEUKOCYTE ESTERASE NEG Leu/uL (Negative); URINE NITRATE NEGATIVE (NEGATIVE); URINE PROTEIN NEGATIVE (NEGATIVE); URINE UROBILINOGEN NORMAL mg/dL (0.2-1.0)
[2017-08-17 19:04] LABS: VENOUS BLOOD GAS PCO2 46 mmHg (40-60); VENOUS BLOOD GAS PO2 34 mm/Hg (30-55)
[2017-08-17 19:10] LABS: ALB/GLOB RATIO 1.2 (1.0-2.1); ALBUMIN 4.2 g/dL (3.5-5.0); ALT/SGPT 39 U/L (9-52); AST/SGOT 59 U/L (14-36); BLOOD UREA NITROGEN 15 mg/dL (7-17); CALCIUM 9.7 mg/dl (8.6-10.4); GFR AFRICAN-AMERICAN > 60; GFR NON-AFRICAN AMERICAN > 60
[2017-08-17 21:09] VITALS: O2SAT 99
[2017-08-17 21:21] VITALS: BP 123/80; PULSE 63; RESP 16; TEMP 98.6
--- NOTE | 2017-08-18 07:51 | RAD ---
HISTORY: cough COMPARISON: 06/09/2017 TECHNIQUE: Chest PA and lateral FINDINGS: LUNGS: No active pulmonary disease. PLEURA: No significant pleural effusion identified. No pneumothorax apparent. CARDIOVASCULAR: No radiographic findings to suggest acute or significant cardiovascular disease. Venous access catheter in stable, satisfactory position. OSSEOUS STRUCTURES: No significant abnormalities. VISUALIZED UPPER ABDOMEN: Normal. OTHER FINDINGS: None. IMPRESSION: No active disease. No significant interval change compared to the prior examination(s).
== END 2017-08-17 22:37 | disposition home or self-care (01) ==
LOC: C.ER 17:01
DX: J11.1 Influenza due to unidentified influenza virus with other respiratory manifestations (principal); C50.919 Malignant neoplasm of unspecified site of unspecified female breast; C79.51 Secondary malignant neoplasm of bone
CPT/HCPCS: 71046; 80053; 81001; 82803; 85025; 87040; 87804; 94640; 99284; J7040